=== PATIENT | female | born 1980 | race Two or more races ===

== ENCOUNTER 2022-10-07 12:11 | Emergency (ER) | payer OTHER ==
[~2022-10-07] VITALS: Ht 157.5 cm; Wt 52.3 kg
[2022-10-07 13:16] VITALS: BP 131/44
== END 2022-10-07 13:27 | disposition home or self-care (01) ==
LOC: ER 12:11
DX: H61.113 Acquired deformity of pinna, bilateral (principal); Z76.0 Encounter for issue of repeat prescription